=== PATIENT | male | born 1955 | race African-American/Black ===

== ENCOUNTER 2019-12-05 11:20 | Inpatient (IN) | payer MEDICARE, MEDICAID ==
[2019-12-05] VITALS (20 sets, daily range): BP systolic 113–199; BP diastolic 73–112
[~2019-12-05] VITALS: Ht 195.6 cm; Wt 85.0 kg
--- NOTE | 2019-12-05 11:20 | NUR ---
PT TO ROOM VIA EMS; ALERT TO SELF AND PLACE;
--- NOTE | 2019-12-05 11:25 | NUR ---
DR WATSON AT BEDSIDE. PT DROWSY, ORIENTED TO SELF AND PLACE. REPORTS HE "FELL OUT" PRIOR TO ARRIVAL. BROUGHT TO ED VIA EMS. PT CHANGED TO GOWN. VS TAKEN. LABS DRAWN. PT PRESENTS WITH LEG WEAKNESS ON LEFT, AND BILAT WALLCOVERING TEXTURER WEAKNESS. SPEECH IS SLURRED. PT IS SLOW TO OBEY COMMANDS.
--- NOTE | 2019-12-05 11:32 | NUR ---
PT IN CT. TELE MED AT BEDSIDE
[2019-12-05 11:34] LABS: GFR > 60 ML/MIN (>=60 (CALC)); GFR FOR AFR.AMER. > 60 ML/MIN (>=60 (CALC))
[2019-12-05 11:40] LABS: HEMATOCRIT 34.4 % (39.0-50.0); HEMOGLOBIN 11.8 g/dl (14.0-18.0); IMMATURE GRANULOCYTES 0.3 % (0.0-5.0); MEAN CELL VOLUME 85.1 fL CALC (80.0-100.0); MEAN CORPUSCULAR HGB 29.2 pG CALC (26.0-32.0); MEAN CORPUSCULAR HGB CONC 34.3 g/dL CAL (32.0-36.0); NEUT# 1.92 thou/uL (1.82-7.42); RED BLOOD COUNT 4.04 mill/uL (4.70-6.10); RED CELL DISTRI WIDTH 14.2 % (11.5-15.5)
[2019-12-05 11:53] LABS: ALBUMIN 3.8 g/dL (3.2-5.0); ALKALINE PHOSPHATASE 66 u/l (38-126); ANION GAP 12 (6-22 (CALC)); BILIRUBIN, TOTAL 0.5 mg/dL (0.0-1.4); BUN 10 mg/dL (8-23); BUN/CREATININE RATIO 15 (12-20 (CALC)); CARBON DIOXIDE 25 mmol/l (22-30); CHLORIDE 105 mmol/l (95-108); CREATININE 0.7 mg/dL (0.7-1.3); GFR > 60 ML/MIN (>=60 (CALC)); GFR FOR AFR.AMER. > 60 ML/MIN (>=60 (CALC)); POTASSIUM 3.4 mmol/l (3.5-5.1); SGOT/AST 22 u/l (19-48); SODIUM 138 mmol/l (137-146); TOTAL PROTEIN 6.9 g/dL (6.3-8.2)
--- NOTE | 2019-12-05 11:55 | NUR ---
PT RETURNED TO ED. CATH UA DONE. MONITORS IN PLACE
[2019-12-05 12:05] LABS: MYOGLOBIN 35 ng/mL (0 - 121)
[2019-12-05 12:10] LABS: ACT PARTIAL THROMBO TIME 30.6 SECONDS (20.0-32.5); INTERNATIONAL NORMALIZED RATIO 1.2 RATIO (0.7-1.3); PROTHROMBIN TIME 12.7 SECONDS (9.0-12.5)
--- NOTE | 2019-12-05 12:25 | NUR ---
PT RESTING ON STRECHER WAITING RESULTS.
--- NOTE | 2019-12-05 13:00 | NUR ---
18 FR SILVA INSERTED. 600 ML CLEAR YELLOW URINE RETURNED. PT PREVIOUSLY VOIDED 800 ML INTO URINBAL AND SOAKED BED WITH URINE. PT CLEANED, SHEETS CHANGED, SKIN CHECKED.
[2019-12-05 13:15] LABS: URINE BILIRUBIN - DIPSTICK NEGATIVE (NEGATIVE); URINE BLOOD DIPSTICK TRACE-INTACT (NEGATIVE); URINE COLOR YELLOW; URINE GLUCOSE - DIPSTICK NEGATIVE (NEGATIVE); URINE KETONE NEGATIVE (NEGATIVE); URINE LEUK ESTERASE NEGATIVE (NEGATIVE); URINE NITRITE - DIPSTICK NEGATIVE (Negative); URINE PROTEIN - DIPSTICK NEGATIVE (NEG-TRACE); URINE UROBILINOGEN - DIPSTICK 0.2 E.U./dL (0.2)
[2019-12-05 13:47] LABS: BARBITURATES NEGATIVE (NEGATIVE); COCAINE NEGATIVE (NEGATIVE); METHADONE NEGATIVE (NEGATIVE); OXCYCODONE NEGATIVE (NEGATIVE); TETRAHYDROCANNABIONOL NEGATIVE (NEGATIVE); TRICYLIC ANTIDEPRESSANTS NEGATIVE (NEGATIVE)
--- NOTE | 2019-12-05 13:47 | NUR ---
REPORT GIVEN TO DANIEL LUNA
--- NOTE | 2019-12-05 14:36 | NUR ---
PT RESTING EASILY AROUSABLE. NO CHANGE IN CONDITION. AWAITING ICU AVAILABILITY.
--- NOTE | 2019-12-05 15:00 | NUR ---
PT ICU STATUS. BEDSIDE REPORT RECEIVED FROM ER NURSE RONAL. ICU CARE PROVIDED AT THIS TIME. PT HOLDING IN ER 14. PT DROWSY, OPENS EYES TO VOICE. PT ABLE TO ANSWER QUESTIONS. PT ORIENTED TO SELF AND SITUATION. PT STATED HE DID NOT KNOW HE WAS IN THE HOSPITAL BUT REMEBERS FALLING. PT KNOWS THE CORRECT MONTH; HOWEVER, DOES NOT KNOW THE DAY AND YEAR. PT KNOWS HIS MONTH AND DAY BUT DOES NOT REMEBER YEAR. PT STATES HIS YEAR IS EITHER [id number] AND HE'S BETWEEN 63-65 YEARS OLD. WILL CONTINUE TO MONITOR.
--- NOTE | 2019-12-05 15:00 | NUR ---
PT TRANSFERRED TO ICU.
--- NOTE | 2019-12-05 15:08 | NUR ---
PATIENT TO MRI WITH THIS RN. WILL CONTINUE TO MONITOR.
--- NOTE | 2019-12-05 15:12 | NUR ---
PT IN MRI WITH THIS RN. MONITORING CONTINUES.
--- NOTE | 2019-12-05 15:53 | NUR ---
PT BACK TO ROOM ER14 FROM MRI. PT IN STABLE CONDITION. NO DISTRESS NOTED
--- NOTE | 2019-12-05 15:55 | NUR ---
PT ANSWERING QUESTIONS. PT PLACED ON MONITOR. PT OPENS EYES TO VOICE. PT NOTED TO HAVE SKIN TEAR ON RIGHT PINKY FINGER. BANDAID PLACED. PT HAS SILVA. NO WOUNDS NOTED COCYX/BUTTOCKS. PT NOTED TO HAVE SCABS THROUGHOUT BODY. PT LISTENING TO COMMANDS. WILL CONTINUE TO MONITOR.
--- NOTE | 2019-12-05 16:15 | NUR ---
PT AT BEDSIDE. PT TO BEDSIDE COMMODE WITH MAX ASSIST TO HAVE BM. WILL CONTINUE TO MONITOR.
--- NOTE | 2019-12-05 16:30 | NUR ---
PT SITTING UP IN BED NIHSS COMPLETED. NO DISTRESS NOTED. WILL CONTINUE TO MONITOR.
--- NOTE | 2019-12-05 17:00 | NUR ---
PT MORE ALERT. ANSWERING QUESTION. PT STILL CONFUSED ON YEAR AND HIS YEAR AND AGE. PT SITTING UP IN BED. OPENING EYES SPONTANEOUSLY. WILL CONTINUE TO MONITOR
--- NOTE | 2019-12-05 17:03 | NUR ---
SWALLOW STUDY COMPLETED PER ORDER SET. PATIENT ABLE TO SWALLOW WITHOUT DIFFICULTY 3OZ OF WATER.
--- NOTE | 2019-12-05 17:10 | NUR ---
CHARTED ON INCORRECT TIME. INTERVENTION UNDONE, TIME CHANGED. CORRECT TIME 1555. CARE TAKEN OVER FOR PATIENT AT 1500.
--- NOTE | 2019-12-05 17:25 | NUR ---
PT UP IN BED EATTING DINNER. NO DISTRESS NOTED. WILL CONTINUE TO MONITOR
--- NOTE | 2019-12-05 18:31 | NUR ---
PT RESTING IN BED WITH EYES CLOSED. NO DISTRESS NOTED. RICARDO. . REPORT TO BE GIVEN TO NIGHT NURSE
--- NOTE | 2019-12-05 19:12 | NUR ---
PATIENT IS PICKED UP AT ER BY THIS NURSE, BEDSIDE REPORT GIVEN BY JEREMY SANCHEZ. PT IS DROWSY, AWAKENS WIHT VERBAL OR PAINFUL STIMULI AT TIMES. PT IS ORIENTED TO HIS NAME, , CURRENT MONTH. WHEN PERFORMING NIH TEST ON PATIENT, PT DOES NOT STAY AWAKE TO FULLY DO ALL OF TEST, FOLLOWS SIMPLE COMMANDS ONLY, BASEBALL CLUB MANAGER MY FINGERS. PT HAS BILAT MODERATE DOCK GRADER. NURSING ASSESSMENT PERFORMED. PT HSATS 97% ON RA, NO SOB NOTED. SR WITH PVC'S ON TELEMETRY. BP 150'S-160'S SYTOLIC. AFEBRILE. LAC EMS SITE INTACT, SALINE LOCKED. SILVA CATHETER INTACT, DRAINS PALE YELLOW/CLEAR URINE. NO C/O PAIN. CALL LIGHT WITHIN REACH, DEMONSTRATED AND EXPLAINE ON HOW TO USE CALL LIGHT. WILL CONTINUE TO MONITOR.
--- NOTE | 2019-12-05 23:43 | NUR ---
PT IS AROUSABLE TO SPEECH. HE DOES NOT STAY AWAKE, HAS TO BE WOKEN UP, PT ABLE TO TAKE HIS SURFAK PO MEDICATION. ACCEPTED APPLESAUCE TO HELP SWALLOW IT, HE IS ABLE TO DRINK AND EAT WITHOUT COUGHING AND NO DISTRESS NOTED. HOB 30 DEGREES. CALL LIGHT WITHIN REACH.
[2019-12-06] VITALS (26 sets, daily range): BP systolic 143–192; BP diastolic 70–115
--- NOTE | 2019-12-06 01:52 | NUR ---
PT IS AFEBRILE. PT AWAKENS EASILY WHEN SPOKEN TO. REQUESTS AN APPLE JUICE AND ORANGE JUICE, AND "POTATO CHIPS." PATIENT ABLE TO DRINK BOTH JUICES WITH ASSISTANCE AND WAS ABLE TO HOLD WITH HIS HANDS, UNSALTED CRACKERS PROVIDED, FOLOWING DIET ORDERS. PT IS AWAKE, ORIENTED TO NAME, , AND PLACE ONLY. PT INSTRUCTED TO WIPE HIS HANDS WITH HAND WIPES PROVIDED, PT ABLE TO FOLLOW COMMANDS, HAS BILAT WEAK DIRECTOR TECHNICAL. ABLE TO PULL HIMSELF UP WITH VERBAL CUEING, SELF REPOSITIONS. CALL LIGHT WITHIN REACH. HOB ELEVATED AT ALL TIMES. CALL LIGHT WITHIN REACH.
--- NOTE | 2019-12-06 02:25 | NUR ---
IV APRESOLINE GIVEN PER ORDERS AND PARAMETERS. BP 187/102 MMHG. WILL MONITOR.
--- NOTE | 2019-12-06 03:56 | NUR ---
PT SITS UP IN BED AND DRINK HIS WATER AT HIS BEDSIDE TABLE. NOW LAYS ON HIS LEFT SIDE, COVERS HIMSELF WITH THE BLANKETS. CALL LIGHT WITHIN REACH.
--- NOTE | 2019-12-06 04:19 | NUR ---
PT SUPERVISORY TRAINING SPECIALIST LIGHT, REQUESTS TO USE BSC. ASSIST X2 TO BSC, PT ABLE TO MANEUVER TO BSC WITH MINIMAL ASSIST AND VERBAL CUEING, CALL LIGHT PROVIDED TO CALL WHEN READY.
--- NOTE | 2019-12-06 04:30 | NUR ---
PT CALLS OUT HE IS READY TO GET OFF OF BSC. PT ABLE TO WASH HIS BUTTOCKS AREA. PT SAFELY BACK IN BED. REQUESTS A "SODA." WILL PROVIDE. NO ACUTE DISTRESS SHOWN. WHEN ASKED IF HE KNOWS WHY HE IS HERE HE STATES, "BECAUSE I FELL." PATIENT EXPLAINED POC. CALL LIGHT WITHIN REACH.
--- NOTE | 2019-12-06 05:08 | NUR ---
PT HOLLERS OUT, PT THINKS HIS CALL LIGHT IS ALARMING, I EXPLAINED TO PATIENT IT'S THE MONITOR THAT ALERTS FOR DIFFERENT THINGS, SUCH HIS BP, O2, OR HEART RHYTHM. PT UNDERSTANDS AND AGREES.
--- NOTE | 2019-12-06 07:14 | NUR ---
PT SLEEPING ON LEFT SIDE, EASILY AROUSED. CALLBELL W/IN REACH. VSS. WILL CONTINUE TO MONITOR.
--- NOTE | 2019-12-06 07:43 | NUR ---
PT SITTING UP IN BED, EATING BREAKFAST. PT ABLE TO REPOSITION SELF. PT A&O TO NAME, , & ROXANNE. DOES NOT KNOW DATE. PT STATES "YALL SURE ARE NICE AROUND HERE".
--- NOTE | 2019-12-06 07:56 | NUR ---
PT EDUCATED ON SALT CONTENT IN SODA R/T CARDIAC DIET.
--- NOTE | 2019-12-06 08:22 | NUR ---
PT ASKING FOR SODA, GIVEN JUICE x2. WATCHING TV. CURTAINS OPENED. NO OTHER NEEDS/CONCERNS AT THIS TIME.
--- NOTE | 2019-12-06 08:23 | NUR ---
NIKITA, OT, @BEDSIDE WITH PT. PT ATE BREAKFAST W/OUT DIFFICULTY. MOVES EXTREMETIES x4.
--- NOTE | 2019-12-06 09:04 | NUR ---
[facility] 0, COMPLETED WITH DR VALLADARES @BEDSIDE. PT HAS TROUBLE FOLLOWING SIMPLE DIRECTIONS. SURGICAL SCAR TO RIGHT KNEE. BANDAID ON SKIN TEAR ON RIGHT PINKY. VERY POOR DENTAL HYGEINE. PT STATES HE LIVES IN THE [place]. STATES HE HAS FAMILY IN [place]. ABD SOFT/NONTENDER/DISTENDED, ACTIVE BS. NO EDEMA. SR W/PVC'S ON TELE. STRONG PULSES x4. SPEECH CLEAR. UPPER/MIDDLE LUNGS CLEAR, BASES DIMINISHED. MODERATE FULL FASHIONED GARMENT KNITTER. UNKNOWN NORMAL FOR PT. PT C/O BLURRY EYESIGHT x"MONTHS".
--- NOTE | 2019-12-06 10:36 | NUR ---
pt assisted back to bed with steady gait for echo. u/s @bedside.
--- NOTE | 2019-12-06 10:41 | NUR ---
LADY FROM [facility], STATES SHE IS POA & PTS NAME IS BETZY ANN 100MG HALDOL INJECTION Q1M, DUE: 12/12/2019 BENZODIAZEPINE 2MG QD TAMSULOSIN 0.4MG QD LOSARTAN 50MG QD FLUOXETINE 40MG QD HALOPERIDOL 5MG QHS UPDATED HOME MED REC, NOTIFIED PHARMACY.
[2019-12-06] MEDS ORDERED: [UNRECOGNIZED DRUG - OTHER] PO (10:53)
[2019-12-06] MEDS ORDERED: TAMSULOSIN HCL0.4 MG PO (10:53)
[2019-12-06] MEDS ORDERED: LOSARTAN POTASS50 MG PO (10:54)
[2019-12-06] MEDS ORDERED: FLUOXETINE10 M2 PO (10:54)
[2019-12-06] MEDS ORDERED: HALOPERIDOL5 MG PO (10:55)
[2019-12-06] MEDS ORDERED: [UNRECOGNIZED DRUG - OTHER] IM (10:56)
[2019-12-06] MEDS ORDERED: BENZTROPINE0.5 MG PO (11:49)
--- NOTE | 2019-12-06 11:52 | NUR ---
ECHO COMPLETE. PT ASSISTED BACK TO RECLINER. SITTING UP EATING LUNCH. PT OFFERED 2ND TRAY OF LUNCH. PHANI PAEZ, SENT THE FOLLOWING COPIED PAPERWORK: SS CARD, MEDICATION LIST, CERTIFICATE, RX CARD, PHILIPPE PAPERWORK; PLACED IN CHART.
--- NOTE | 2019-12-06 12:00 | NUR ---
NO NEURO ABNORMALITIES. PT A&Ox2. PT HAPPY, CLEAR SPEECH.
--- NOTE | 2019-12-06 12:47 | NUR ---
NAME CHANGED & PT REBANDED TO SHOW NEW NAME FROM KING MARISSA TO BETZY AYALA.
--- NOTE | 2019-12-06 13:21 | NUR ---
PT ASSISTED UP TO BSC FOR BM. INSTRUCTED TO CALL FOR HELP UPON COMPLETTION.
--- NOTE | 2019-12-06 14:02 | NUR ---
PHYSICAL THERAPY @BEDSIDE WITH PT
--- NOTE | 2019-12-06 14:25 | NUR ---
SPEECH THERAPY @BEDSIDE FOR EVAL.
--- NOTE | 2019-12-06 14:30 | NUR ---
AMPAC SCORE: 18 POINTS PT WAS INDEPENDENT ON ALL FUNCTIONAL ACTIVITIES. HE AMBULATED IN THE HALLWAY W/ RW X 10 FT X 2 WITH NOTED FAULTY USE OF WALKER WITH ATAXIC GAIT. ALSO NOTED ALTERED MENTATION AND DIFFICULTY COMPREHENDING INSTRUCTIONS, THEREFORE HAS POOR SAFETY AWARENESS. HE WILL BENEFIT FROM HOME HEALTH PHYSICAL THERAPY [place] FOR GEN. CONDITIONING AND ENVIRONMENTAL/HOME SAFETY CHECK.
--- NOTE | 2019-12-06 15:43 | NUR ---
Patient is seen for CELL ATTENDANT bedside eval - refer to eval for results
--- NOTE | 2019-12-06 16:00 | NUR ---
NO NEURO ABNORMALITIES. PT A&Ox2. PT HAPPY, CLEAR SPEECH.
--- NOTE | 2019-12-06 16:27 | NUR ---
MRS DUSTY CALLED FOR UPDATE ON PTS STATUS. PT WANTED PHANI TO KNOW, "HE BE ALRIGHT" & "THEY TREAT ME TOO GOOD HERE". PHILIPPE DOES NOT WANT PT TO GO TO A REHAB FACILITY AND DOES NOT WANT HOME HEALTH CARE [place] [place] BY OF [facility]".
--- NOTE | 2019-12-06 17:22 | NUR ---
PT REMAINS SITTING UP IN RECLINER, EATING DINNER, WATCHING TV.
--- NOTE | 2019-12-06 19:40 | NUR ---
PT SITS ON RECLINER,L WATCHES TV, NIH PERFORMED, SCORE IS 1 FOR INCORRECT MONTH STATED, PT THINKS IT'S OCTOBER, PT REORIENTED TO CURRENT DATE. PT ABLE TO PARTICIPATE FOR NIH TEST, PT NEEDS PLENTY OF VERBAL CUEING AND DEMONSTRATION FOR HIM TO BE ABLE TO FOLLOW DIRECTIONS CORRECTLY. NURSING ASSESSMENT PERFORMED. PT IS ON RA, SATS 100%, SR ON TELEMETRY, HR RANGES 60'S-70'S, AFEBRILE, BP 160'S SYTOLIC. LAC AND R-H IV'S INTACT, SALINE LOCKED. POC FOR TONIGHT DISCUSSED. SILVA CATHETER INTACT. PITCHER OF ICED WATER PROVIDED. CALL LIGHT WITHIN REACH.
--- NOTE | 2019-12-06 20:23 | NUR ---
PT STANDS UP, I ASKED HIM IF HE WAS READY TO LAY IN BED, HE REQUESTS TO GO TO BED. MINIMAL ASSIST TO BED. LAYS IN BED, WATCHES TV, REQUESTS A "SODA," EDUCATED ON DIET ORDERS, POURED MORE WATER INTO HIS CUP. CALL LIGHT WITHIN REACH.
--- NOTE | 2019-12-06 21:35 | NUR ---
PT ABLE TO TOLERATE HIS PO MEDS AND LOVENOX INJECTION. NO COMPLAINTS, LAYS ON HIS LEFT SIDE, RESTS WITH EYES CLOSED. REMINDED HIM TO USE CALL LIGHT AT ANYTIME.
[2019-12-07] VITALS (12 sets, daily range): BP systolic 138–169; BP diastolic 70–90
--- NOTE | 2019-12-07 04:14 | NUR ---
PATIENT AWAKENS EASILY WHEN SPOKEN TO. BP RECHECKED ON LAFT ARM DUE TO HIGH READING ON R-ARM. NO NEED FOR PRN BP MED AT THIS TIME. SILVA EMPTIED, 900 ML. SILVA INTACT. PT REQUESTS A SODA, PROVIDED. DRINKS WITHOUT DIFFICULTY. LAC EMS SITE DC'D. R-H IV SITE INTACT. CALL LIGHT WITHIN REACH.
--- NOTE | 2019-12-07 06:21 | NUR ---
PT RESTS WITH EYES CLOSED. NO ACUTE DISTRESS NOTED. CALL LIGHT WITHIN REACH.
--- NOTE | 2019-12-07 06:50 | NUR ---
REPORT RECEIVED FROM OUTGOING NURSE. PT RESTING IN BED WITH EYES CLOSED AT THIS TIME. WILL CONTINUE TO MONITOR.
--- NOTE | 2019-12-07 08:00 | NUR ---
PT ASSESSED, AFEBRILE, ALERT TO SELF AND SITUATION ONLY AT THIS TIME, MOVES ALL EXT EVENLY. BREAKFAST AT BEDSIDE. SEE PROCESS INTERVENTIONS FOR FULL ASSESSMENT.
--- NOTE | 2019-12-07 08:10 | NUR ---
CONSENT FOR PNEUMONIA VACCINE SIGNED AND IN CHART.
--- NOTE | 2019-12-07 08:15 | NUR ---
SPOKE TO PATIENTS POA REGARDING PT STATUS. SHE SAID SHE WAS RECONSIDERING PT REHAB OPTIONS. REFERRED HER TO CASE MANAGEMENT FOR FURTHER DETAILS AND ARRANGEMENTS.
--- NOTE | 2019-12-07 08:50 | NUR ---
DR VALLADARES AT BEDSIDE, STATED THAT HE IS TRANSFERING PT TO MED SURG.
--- NOTE | 2019-12-07 09:20 | NUR ---
PNEUMONIA VACCINE GIVEN PER MD ORDER.
--- NOTE | 2019-12-07 09:51 | NUR ---
SPOKE TO MALIA REGARDING PT STATUS, THE PLAN IS TO SEND TO PHYSICAL THERAPY.
--- NOTE | 2019-12-07 09:54 | NUR ---
SPOKE TO DR VALLADARES REGARDING PT TRANSFER, HE WILL PUT ORDER IN FOR TRANSFER AFTER HIS MEETING.
--- NOTE | 2019-12-07 11:33 | NUR ---
TRANSFER ORDER RECEIVED, MED SURG NOTIFIED. PENDING BED PLACEMENT.
--- NOTE | 2019-12-07 11:58 | NUR ---
PT ASSESSED, NEURO CHECK NEGATIVE, ALERT AND ORIENTED TO SELF AND SITUATION, AFEBRILE. SEE PROCESS INTERVENTIONS FOR FULL ASSESSMENT.
--- NOTE | 2019-12-07 13:05 | NUR ---
REPORT CALLED TO LOW MOOR MED SURG. BED 262.
--- NOTE | 2019-12-07 13:30 | NUR ---
PT TRANSFERED TO MED SURG BED 262 VIA WHEELCHAIR. PT TOLERTED WELL.
--- NOTE | 2019-12-07 13:43 | NUR ---
HAND OFF REP[ORT RECEIVED FROM JEREMY HOLLY FROM ICU. PT ORIENTED TO ROOM. PT IS PLEASANT AND COOPERATIVE. CALL LIGHT WITHIN EASY REACH, BED IN LOWEST POSITION. SAIL REPAIRER WILL CONTINUE TO MONITOR.
--- NOTE | 2019-12-07 14:58 | NUR ---
Gait training with CGA and no AD. Patient was able to transfer from bed to standing independently. Patient ambulated with no LOB. Ampac score unchanged.
--- NOTE | 2019-12-07 15:20 | NUR ---
PT RESTING COMFORTABLY IN ROOM. PT IS ABLE TO MAKE SOME NEEDS KNOWN. PT DENIES PAIN OR DISCOMFORT. PT REORIENTED TO CALL LIGHT. PT AGREES TO NOTIFY CLAY HOISTER OF ANY CONCERNS. CLAY HOISTER WILL CONTINUE TO MONITOR
--- NOTE | 2019-12-07 20:20 | NUR ---
PHYSICAL ASSESMENT COMPLETE. VS TAKEN BY NATTY @ 1419 ASSESED. TELEMETRY READING FROM ED AUTO TRAVEL COUNSELOR @ 1999 ASSESSED. PLAN OF CARE REVIEWED, PT VERBALIZES UNDERSTANDING, DENIES QUESTIONS. PT DENIES NEEDS @ THIS TIME. ITEMS WITHIN REACH. CALL ALMAZAN WITHIN REACH, AGREES TO CALL PRN. BED LOCKED IN LOW POSITION W/ BEDRAILS UP X2.
--- NOTE | 2019-12-08 00:05 | NUR ---
PT APPEARS TO BE SLEEPING, NO APPARENT DISTRESS, APPEARS COMFORTABLE, RESPIRATIONS REGULAR AND UNLABORED. VS TAKEN BY CNMT @ 2342 ASSESED. TELEMETRY READING FROM ED PERFORMANCE ANALYST @ 0000 ASSESSED. ITEMS REMAIN WITHIN REACH. CALL ALMAZAN REMAINS WITHIN REACH, BED REMAINS LOCKED IN LOW POSITION W/ BEDRAILS UP X2.
[2019-12-08 03:55] VITALS: BP 156/87
--- NOTE | 2019-12-08 05:29 | NUR ---
NO CHANGE IN PHYSICAL ASSESMENT. VS TAKEN BY DIRECTOR EXECUTIVE COMMUNICATIONS @ 0355 ASSESED. TELEMETRY READING REPORTED BY ED COMMERCIAL ENERGY RATER @ 0400 ASSESED. PT APPEARS COMFORTABLE AND IN NO DISTRESS. LAYING IN BED RESTING. DENIES NEEDS @ THIS TIME. CALL ALMAZAN REMAINS WITHIN REACH, AGREES TO CALL PRN. ITEMS REMAIN WITHIN REACH. BED REMAINS LOCKED IN LOW POSITION W/ BED RAILS UP X2.
--- NOTE | 2019-12-08 07:00 | NUR ---
SHIFT CHANGE REPORT, PT AWAKE AND ALERT, DENIES PAIN, TELE MONITOR IN PLACE, SILVA IN PLACE WITH FLY URINE, CALL ALMAZAN IN REACH.
[2019-12-08 08:53] VITALS: BP 146/74
[2019-12-08 11:02] VITALS: BP 140/73
--- NOTE | 2019-12-08 11:32 | NUR ---
PT note Patient is much stronger today and demonstrates less L extremity strength deficit when compared to eval. His Am Pac is 12-14 and he would do well in ECF as he remains a high fall risk. He ambulated 60 feet today with mod assist of 1 on a level surface with decreased stride length and poor motor plan for LOB which occurred to tthe left and was corrected by therapist. He worked on improved stride length and increased DESIRE
--- NOTE | 2019-12-08 11:52 | NUR ---
SILVA CATHETER REMOVED @ 1128 WITHOUT DIFFUCULTY, PT GIVEN URINAL AND ADVISED TO USE FOR FIRST VOID AND INFORM NURSE. AMBULATED TO BR WITH SLIGHTLY UNSTEADY GAIT, ADVISED TO CALL FOR ASSIST WITH AMBULATION, NEEDS REINFORCEMENT, WILL CONTINUE TO MONITOR.
--- NOTE | 2019-12-08 12:00 | NUR ---
ASSISTED TO BR AND AMBLATED BACK TO ROOM, ALL NEEDS ADDRESSED.
--- NOTE | 2019-12-08 12:14 | NUR ---
MEDICAL TEAM ROUNDED, GAVE ORDERS, PT RESPONDED POSITIVELY.
[2019-12-08 15:37] VITALS: BP 141/75
--- NOTE | 2019-12-08 16:00 | NUR ---
RESTING IN BED, NO COMPLAINS.
--- NOTE | 2019-12-08 17:18 | NUR ---
Mr. Slater was seen today for a cognitive visit. He appeared very lethargic and sleepy. FIELD CARE ADVOCATE asked him how he was feeling and he said he felt fine. She discussed with him that he may be moving to a facility to live since he wants very much to have a home. He did not appear very happy. A communication board was presented to see if he could identify emotions. He did demostrate some difficulty and then said, "I have to go to the bathroom". He stood up and went to the bathroom. FIELD CARE ADVOCATE then showed several communication boards to his nurse. She was very interested in keeping and using them for Mr. Slater. The nurse was told that he needs to see a dentist. She reported that would not be possible at this time.
[2019-12-08 18:53] VITALS: BP 152/85
--- NOTE | 2019-12-08 20:30 | NUR ---
PHYSICAL ASSESMENT COMPLETE. VS TAKEN BY NATTY @ 1360 ASSESED. TELEMETRY READING FROM ED MECHANICAL INSULATOR @ 1999 ASSESSED. PLAN OF CARE REVIEWED, PT VERBALIZES UNDERSTANDING, DENIES QUESTIONS. PT DENIES NEEDS @ THIS TIME. ITEMS WITHIN REACH. CALL ALMAZAN WITHIN REACH, AGREES TO CALL PRN. BED LOCKED IN LOW POSITION W/ BEDRAILS UP X2.
[2019-12-08 23:30] VITALS: BP 152/89
--- NOTE | 2019-12-09 01:31 | NUR ---
PT APPEARS TO BE SLEEPING, NO APPARENT DISTRESS, APPEARS COMFORTABLE, RESPIRATIONS REGULAR AND UNLABORED. VS TAKEN BY SHIP ERECTOR @ 2330 ASSESED. TELEMETRY READING FROM ED TOWER OBSERVER @ 0000 ASSESSED. ITEMS REMAIN WITHIN REACH. CALL ALMAZAN REMAINS WITHIN REACH, BED REMAINS LOCKED IN LOW POSITION W/ BEDRAILS UP X2.
[2019-12-09 03:38] VITALS: BP 158/91
--- NOTE | 2019-12-09 05:03 | NUR ---
NO CHANGE IN PHYSICAL ASSESMENT. VS TAKEN BY LEARNING OFFICER @ 0338 ASSESED. TELEMETRY READING REPORTED BY ED PHOTOGRAPHER FINISH @ 0400 ASSESED. PT APPEARS COMFORTABLE AND IN NO DISTRESS. LAYING IN BED RESTING. DENIES NEEDS @ THIS TIME. CALL ALMAZAN REMAINS WITHIN REACH, AGREES TO CALL PRN. ITEMS REMAIN WITHIN REACH. BED REMAINS LOCKED IN LOW POSITION W/ BED RAILS UP X2.
[2019-12-09 07:21] VITALS: BP 154/74
--- NOTE | 2019-12-09 07:21 | NUR ---
PT LAYING IN BED WATCHING TV. NO DISTRESS NOTED. PT DENIES ANY PAIN OR NEEDS AT THIS TIME. ASSESSMENT COMPLETED. DISCUSSED POC. CALL LIGHT IN REACH. CONTINUE TO MONITOR.
--- NOTE | 2019-12-09 08:46 | NUR ---
PT AMBULATING HALLWAY WITH PHYSICAL THERAPY. STEADY GAIT OBSERVED.
--- NOTE | 2019-12-09 08:52 | NUR ---
Pt seen this am for treatment. He was resting in bed, cooperative. He moved supine to sit with verbal cues, tends to sit straight up and when sitting over edge required verbal and physical cue to place feet on floor. Gait with CGA/min 2 x 70' with pt scissoring leg several times. Motor planning decreased with gait and ex. Standing and sitting ex performed 2x10. Pt had difficulty with side stepping. Pt left in bed with call lovell and tray in reach. He did voice any complaints.
--- NOTE | 2019-12-09 10:12 | NUR ---
PT CURRENTLY SLEEPING IN BED. NO DISTRESS NOTED. CALL LIGHT IN REACH. CONTINUE TO MONITOR.
[2019-12-09 11:15] VITALS: BP 148/54
--- NOTE | 2019-12-09 13:10 | NUR ---
PT FOUND TO BE TAKING A SHOWER WITH TELE ON. EXPLAINED TO PT THAT HE CANNOT TAKE A SHOWER WITH MONITOR AND IV SHOULD BE COVERED, IV FOUND ON BATHROOM BENCH. PER PT "I THOUGHT I HAD TO TAKE IT OFF" . INSTRUCTIONS TO NOT REMOVE IV WERE GIVEN. PT VERBALIZED UNDERSTANDING.
--- NOTE | 2019-12-09 14:00 | NUR ---
PT SITTING IN BED WATCHING TV. NO NEEDS AT THIS TIME. CALL LIGHT IN REACH. CONTINUE TO MONITOR
--- NOTE | 2019-12-09 14:20 | NUR ---
Mr. Leger was very cooperative and much more cheerful after his session. Initially, the ZIPPER SLIDE ATTACHER came in and he was laying in the dark not knowing how to work the remote control. During his therapy session, he was able to express his basic needs and asked for "orange juice, shower soap, clean clothes, and even a shave from the REGULATORY SUBMISSIONS ASSOCIATE". He was able to remember that he was given a steak and expressed gratitude for being here and having food. During a very simple listening comprehension activity, he was not able to remember details after hearing just 1-2 short sentences. His short term memory, even for his favorite sport, fishing, is impaired. In addition, his phone rang while the ZIPPER SLIDE ATTACHER was in the room. She answered it and it was a nurse director from a permanent home. The conversation was documented and then reported to case management and quality assurance supervisor trim. Mr. Slater told the ZIPPER SLIDE ATTACHER she was beautiful and that he is very thankful for her.
[2019-12-09 15:05] VITALS: BP 159/91
--- NOTE | 2019-12-09 15:10 | NUR ---
PT FOUND TO BE TAKING A SHOWER WITH TELE ON. EXPLAINED TO PT THAT HE CANNOT TAKE A SHOWER WITH MONITOR AND IV SHOULD BE COVERED. IV FOUND ON BATHROOM SEAT. PER PT "I THOUGHT I HAD TO TAKE IT OFF". INSTRUCTIONS TO NOT REMOVE IV WERE GIVEN. PT VERBALIZED UNDERSTANDING
--- NOTE | 2019-12-09 15:15 | NUR ---
NEW IV STARTED BY JULIA ALLEN #22 RT HAND.
[2019-12-09 19:51] VITALS: BP 165/95
--- NOTE | 2019-12-09 20:30 | NUR ---
PHYSICAL ASSESMENT COMPLETE. VS TAKEN BY NATTY @ 3024 ASSESED. TELEMETRY READING FROM ED HOMICIDE SQUAD CAPTAIN @ 1999 ASSESSED. PLAN OF CARE REVIEWED, PT VERBALIZES UNDERSTANDING, DENIES QUESTIONS. PT DENIES NEEDS @ THIS TIME. ITEMS WITHIN REACH. CALL ALMAZAN WITHIN REACH, AGREES TO CALL PRN. BED LOCKED IN LOW POSITION W/ BEDRAILS UP X2.
--- NOTE | 2019-12-09 20:35 | NUR ---
CALL RETURNED TO MS. MONTANO WHO HAD PREVIOUSLY CALLED TO CHECK ON PT AND LEFT MESSAGE FOR CALL TO BE RETURNED TO HER. MS. MONTANO PRVIDED APPROPRIATE COMMUNICATION CODE. UPDATE ON PT'S STATUS PROVIDED. # called .
[2019-12-10 00:30] VITALS: BP 168/92
--- NOTE | 2019-12-10 01:25 | NUR ---
PT APPEARS TO BE SLEEPING, NO APPARENT DISTRESS, APPEARS COMFORTABLE, RESPIRATIONS REGULAR AND UNLABORED. VS TAKEN BY SAFETY FIRE BOSS @ 0030 ASSESED. TELEMETRY READING FROM ED DISTRIBUTION TECHNICIAN @ 0000 ASSESSED. ITEMS REMAIN WITHIN REACH. CALL ALMAZAN REMAINS WITHIN REACH, BED REMAINS LOCKED IN LOW POSITION W/ BEDRAILS UP X2.
[2019-12-10 04:17] VITALS: BP 153/85
--- NOTE | 2019-12-10 04:41 | NUR ---
NO CHANGE IN PHYSICAL ASSESMENT. VS TAKEN BY TRAFFIC WORKER @ 0417 ASSESED. TELEMETRY READING REPORTED BY ED DRIER FEEDER @ 0400 ASSESED. PT APPEARS COMFORTABLE AND IN NO DISTRESS. LAYING IN BED RESTING. DENIES NEEDS @ THIS TIME. CALL ALMAZAN REMAINS WITHIN REACH, AGREES TO CALL PRN. ITEMS REMAIN WITHIN REACH. BED REMAINS LOCKED IN LOW POSITION W/ BED RAILS UP X2.
[2019-12-10 07:43] VITALS: BP 153/84
--- NOTE | 2019-12-10 07:43 | NUR ---
PT LAYING IN BED. A&O X3. NO DISTRESS NOTED. PT DENIES ANY PAIN OR NEEDS AT THIS TIME. ASSESSMENT COMPLETED. DISCUSSED POC. CALL LIGHT IN REACH. CONTINUE TO MONITOR.
[2019-12-10 12:00] VITALS: BP 155/96
--- NOTE | 2019-12-10 13:30 | NUR ---
PT SLEEPING IN BED. NO DISTRESS NOTED. CONTINUE TO MONITOR.
[2019-12-10 15:18] VITALS: BP 143/74
--- NOTE | 2019-12-10 17:52 | NUR ---
PT SITTING ON THE SIDE OF THE BED EATING SUPER. NO NEEDS AT THIS TIME. CALL LIGHT IN REACH CONTINUE TO MONITOR.
[2019-12-10 18:46] VITALS: BP 159/91
--- NOTE | 2019-12-10 20:28 | NUR ---
ASSESSMENT COMPLETED. PT. WATCHING TV. NO DISTRESS NOTED. ABLE TO MOVE ALL EXTREMETIES. SNACKS AND PO FLUIDS PROVIDED. URINAL AT BEDSIDE AND PT. REPORTS BM TODAY. IV SITE PATENT AND SL, FLUSHED WITH NS. ENCOURAGED TO CALL FOR ANY NEEDS. CALL LIGHT IS IN REACH.
[2019-12-11] VITALS (9 sets, daily range): BP systolic 84–176; BP diastolic 60–98
--- NOTE | 2019-12-11 00:04 | NUR ---
PO FLUIDS GIVEN PER REQUEST; DENIES FURTHER NEEDS. CALL LIGHT IS IN REACH.
--- NOTE | 2019-12-11 03:30 | NUR ---
RESTING IN BED WITH EYES CLOSED; RESP. EVEN AND UNLABORED. CALL LIGHT IS IN REACH.
[2019-12-11 04:58] LABS: HEMATOCRIT 36.5 % (39.0-50.0); HEMOGLOBIN 12.4 g/dl (14.0-18.0); MEAN CELL VOLUME 85.3 fL CALC (80.0-100.0); RED BLOOD COUNT 4.28 mill/uL (4.70-6.10); RED CELL DISTRI WIDTH 13.7 % (11.5-15.5)
[2019-12-11 05:10] LABS: ANION GAP 11 (6-22 (CALC)); BUN 12 mg/dL (8-23); BUN/CREATININE RATIO 18 (12-20 (CALC)); CARBON DIOXIDE 28 mmol/l (22-30); CHLORIDE 98 mmol/l (95-108); CREATININE 0.7 mg/dL (0.7-1.3); GFR > 60 ML/MIN (>=60 (CALC)); GFR FOR AFR.AMER. > 60 ML/MIN (>=60 (CALC)); POTASSIUM 3.6 mmol/l (3.5-5.1); SODIUM 134 mmol/l (137-146)
--- NOTE | 2019-12-11 07:28 | NUR ---
PT LAYING IN BED SLEEPING AWAKENED TO COMPLETE ASSESSMENT. A&O. NO DISTRESS NOTED. NO PAIN OR NEEDS AT THIS TIME. ASSESSMENT COMPLETED. DISCUSSED POC. CALL LIGHT IN REACH. CONTINUE TO MONITOR.
--- NOTE | 2019-12-11 12:40 | NUR ---
PT SITTING ON THE SIDE OF THE BED EATING LUNCH. NO NEEDS AT THIS TIME. CALL LIGHT IN REACH. CONTINUE TO MONITOR
--- NOTE | 2019-12-11 17:12 | NUR ---
PT LAYING IN BED. NO NEEDS AT THIS TIME. CALL LIGHT IN REACH. CONTINUE TO MONITOR.
--- NOTE | 2019-12-11 20:05 | NUR ---
PT. RESTING IN BED WITH NO DISTRESS NOTED; DENIES NEEDS/PAIN. ASSESSMENT COMPLETED. SNACK PROVIDED. MANUAL B/P 165/90; WILL CONTINUE TO MONITOR. NEURO WNL. IV SITE PATENT AND SL, FLUSHED WITH NS. ENCOURAGED TO CALL FOR ANY NEEDS. CALL LIGHT IS IN REACH. WILL CONTINUE TO MONITOR.
--- NOTE | 2019-12-11 23:45 | NUR ---
RESTING IN BED WITH EYES CLOSED; NO DISTRESS NOTED. CALL LIGHT IS IN REACH.
--- NOTE | 2019-12-12 02:30 | NUR ---
RESTING IN BED WITH EYES CLOSED; NO DISTRESS NOTED. CALL LIGHT IS IN REACH.
[2019-12-12 04:53] VITALS: BP 148/87
--- NOTE | 2019-12-12 05:30 | NUR ---
RESTING IN BED AND NO DISTRESS NOTED. DENIES PAIN. PO FLUIDS PROVIDED. CALL LIGHT IS IN REACH.
--- NOTE | 2019-12-12 07:00 | NUR ---
REPORT RECEIVED FROM JEREMY SMITH. PT RESTING IN BED SUPINE; ALERT AND ORIENTED. DENIES PAIN. RESPIRATIONS EVEN AND UNLABORED ON ROOM AIR. NEURO CHECK WNL. PLAN OF CARE REVIEWED. PT ENCOURAGED TO VERBALIZE CONCERNS. STATES UNDERSTANDING. SAFETY MEASURES IN PLACE. CALL LIGHT WITHIN REACH.
[2019-12-12 07:53] VITALS: BP 157/85
[2019-12-12 11:00] VITALS: BP 141/85
[2019-12-12] MEDS ORDERED: ADLT ASA LOW81 MG PO (11:26)
[2019-12-12] MEDS ORDERED: ATORVASTATIN CA10 MG PO (11:26)
--- NOTE | 2019-12-12 11:28 | NUR ---
DR. VALLADARES AT BEDSIDE TO DISCUSS DISCHARGE HOME. MONTHLY HALDOL INJECTION ADMINISTERED TO RIGHT ARM.
--- NOTE | 2019-12-12 14:53 | NUR ---
IV site discontinued, cath intact. No edema , no redness, voices no discomfort.
--- NOTE | 2019-12-12 15:36 | NUR ---
Discharge instructions given. Patient verbalizes understanding of same. Discharged in stable condition via Wheelchair to Home with guardian. All belongings sent with pt.
--- NOTE | 2019-12-12 15:51 | NUR ---
PT note Patient ambulating independently in room. He is to DC later but would do well to have home health follow up for med review and higher level gait training
== END 2019-12-12 15:34 | disposition home or self-care (01) | DRG 65 ==
LOC: ED 11:20 → ED-I 12:30 → ED 12:49 → ICU 12:50 → ED-I 12:50 → ICU 19:21 → MS2 12-07 13:33
PROVIDERS: Emergency Medicine; Nurse Practitioner Family; ADMIT Internal Medicine; ATTEND Internal Medicine
PROC: 0T9B70Z Drainage of Bladder with Drainage Device, Via Natural or Artificial Opening (ICD-10-PCS; principal; 2019-12-05)
PROC: 3E0234Z Introduction of Serum, Toxoid and Vaccine into Muscle, Percutaneous Approach (ICD-10-PCS; 2019-12-07)
DX: I63.9 Cerebral infarction, unspecified (principal); G93.49 Other encephalopathy; R47.81 Slurred speech; R53.1 Weakness; R29.709 NIHSS score 9; I10 Essential (primary) hypertension; N40.0 Benign prostatic hyperplasia without lower urinary tract symptoms; F32.9 Major depressive disorder, single episode, unspecified; F17.290 Nicotine dependence, other tobacco product, uncomplicated; Z23 Encounter for immunization; Z20.828 Contact with and (suspected) exposure to other viral communicable diseases
CPT/HCPCS: J1650; Q9967

== ENCOUNTER 2024-04-20 08:07 | Emergency (ER) | payer MEDICARE, MEDICAID ==
[~2024-04-20] VITALS: Ht 188 cm; Wt 99.7 kg
[~2024-04-20 08:07] MED LIST: (None)0.5 MG PO; ADLT ASA LOW81 MG PO; AMLODIPINE5 MG PO; AMMONIUM LACTATE121 EX; ATORVASTATIN CA10 MG PO; BENZTROPINE0.5 MG PO; BENZTROPINE2 MG PO; DICLOFENAC SODI75 MG PO; DONEPEZIL HCL10 M1 PO; FLUOXETINE10 M2 PO; FLUOXETINE20 MG PO; FUROSEMIDE20 MG PO; GEODON40 MG PO; HALDOL DECA100 MG/ML IM; HALOPER DEC100 MG/ML IM; HALOPERIDOL5 MG PO; HYDROCHLOROT25 MG PO; K-TAB20 MEQ; LEVAQUIN750 M1 PO; LOSARTAN POTASS50 MG PO; MEDDOSEPAK PO; METRONIDAZOLE500 MG PO; NORVASC10 M1 PO; PROZAC10 MG PO; ROPINIROLE ER2 MG PO; ROPINIROLE0.5 MG PO; TAMSULOSIN HCL0.4 MG PO; VOLTAREN1%GEL TOP; [UNRECOGNIZED DRUG - OTHER] IM; [UNRECOGNIZED DRUG - OTHER] PO
[2024-04-20 08:17] VITALS: BP 130/68
[2024-04-20 08:30] VITALS: BP 128/70
[2024-04-20 08:45] VITALS: BP 135/79
[2024-04-20 09:00] VITALS: BP 147/77
[2024-04-20] MEDS ORDERED: NAPROXEN500 MG PO (09:17)
[2024-04-20 09:30] VITALS: BP 146/78
== END 2024-04-20 09:35 | disposition home or self-care (01) ==
LOC: ED 08:07 → EDBD 08:07 → ED 08:50
DX: M25.562 Pain in left knee (principal); M25.561 Pain in right knee; I10 Essential (primary) hypertension; E78.5 Hyperlipidemia, unspecified; Z72.0 Tobacco use

== ENCOUNTER 2024-06-22 10:51 | Emergency (ER) | payer MEDICARE, MEDICAID ==
[~2024-06-22] VITALS: Ht 188 cm; Wt 81.0 kg
[2024-06-22] VITALS (25 sets, daily range): BP systolic 143–189; BP diastolic 76–116
[~2024-06-22 10:51] MED LIST changes: +NAPROXEN500 MG PO
[2024-06-22 11:17] LABS: BASO% 1.2 % (0-3); EOS% 1.5 % (0-8); HEMATOCRIT 38.1 % (39.0-50.0); HEMOGLOBIN 12.9 g/dl (14.0-18.0); LYMPH% 36.6 % (15-41); MEAN CELL VOLUME 87.6 fL CALC (80.0-100.0); MEAN CORPUSCULAR HGB 29.7 pG CALC (26.0-32.0); MEAN CORPUSCULAR HGB CONC 33.9 g/dL CAL (32.0-36.0); MONO% 11.7 % (2-13); NEUT# 1.63 thou/uL (1.82-7.42); RED BLOOD COUNT 4.35 mill/uL (4.70-6.10); RED CELL DISTRI WIDTH 13.4 % (11.5-15.5)
[2024-06-22] MEDS ORDERED: HALOPERIDOL LACTATE 5 MG/ML SDV IV ONE (11:20)
[2024-06-22] MEDS ORDERED: AMLODIPINE BESY10 MG PO (11:26)
[2024-06-22] MEDS ORDERED: AMANTADINE100 MG PO (11:26)
[2024-06-22] MEDS ORDERED: TRILEPTAL300 MG PO (11:27)
[2024-06-22 11:28] LABS: ALBUMIN 4.1 g/dL (3.2-5.0); BILIRUBIN, TOTAL 0.6 mg/dL (0.2-1.3); CREATININE 0.7 mg/dL (0.7-1.3); ETHYL ALCOHOL 0 mg/dl (0-30); POTASSIUM 3.1 mmol/l (3.5-5.1); TOTAL PROTEIN 7.4 g/dL (6.3-8.2)
[2024-06-22] MEDS ORDERED: ISOVUE-300 (Iopamidol) 100 ML SDV IV ONE (12:30)
[2024-06-22 13:02] LABS: URINE BILIRUBIN - DIPSTICK Negative (NEGATIVE); URINE BLOOD DIPSTICK Negative (NEGATIVE); URINE GLUCOSE - DIPSTICK Negative (NEGATIVE); URINE KETONE Negative (NEGATIVE); URINE LEUK ESTERASE Negative (NEGATIVE); URINE NITRITE - DIPSTICK Negative (Negative); URINE PROTEIN - DIPSTICK Negative (NEG-TRACE); URINE SPECIFIC GRAVITY 1.015
[2024-06-22 13:07] LABS: URINE COLOR Yellow
[2024-06-22] MEDS ORDERED: POTASSIUM CHLORIDE 20 MEQ/TAB PO ONE (14:10)
== END 2024-06-22 18:05 | disposition designated cancer center or children's hospital (05) ==
LOC: ED 10:51
PROVIDERS: Family Medicine
DX: R45.851 Suicidal ideations (principal); E87.6 Hypokalemia; F20.0 Paranoid schizophrenia; I10 Essential (primary) hypertension; E78.5 Hyperlipidemia, unspecified; F17.210 Nicotine dependence, cigarettes, uncomplicated
CPT/HCPCS: Q9967